=== PATIENT | male | born 1975 | race Caucasian/White ===

== ENCOUNTER 2017-01-25 21:35 | Emergency (ER) | payer MEDICAID, MEDICARE ==
[~2017-01-25] VITALS: Ht 188 cm; Wt 86.0 kg
[~2017-01-25 21:35] MED LIST: IMIP50TA6 PO; QUET100T PO
[2017-01-25 21:58] VITALS: BP 153/97
[2017-01-25] MEDS ORDERED: HYDROGEN PEROXIDE 118 ML SOLUTION ONE (22:32)
== END 2017-01-25 22:55 | disposition home or self-care (01) ==
LOC: EMS 21:38
DX: H61.21 Impacted cerumen, right ear (principal); F17.210 Nicotine dependence, cigarettes, uncomplicated; Z88.8 Allergy status to other drugs, medicaments and biological substances
CPT/HCPCS: 99281

== ENCOUNTER 2017-02-03 17:15 | Emergency (ER) | payer MEDICARE ==
[~2017-02-03] VITALS: Ht 188 cm; Wt 86.4 kg
[2017-02-03] MEDS ORDERED: HYDROGEN PEROXIDE 118 ML SOLUTION TP ONE (18:30)
[2017-02-03] MEDS ORDERED: CARBAMIDE PEROXIDE 6.5% 15 ML OTIC SOLUTION AU ONE (18:30)
[2017-02-03 19:44] VITALS: BP 137/83
== END 2017-02-03 19:57 | disposition home or self-care (01) ==
LOC: EMS 17:18
DX: H61.23 Impacted cerumen, bilateral (principal); F32.9 Major depressive disorder, single episode, unspecified; F41.9 Anxiety disorder, unspecified; Z88.8 Allergy status to other drugs, medicaments and biological substances
CPT/HCPCS: 69209; 99283

== ENCOUNTER 2018-04-18 01:09 | Emergency (ER) | payer SELFPAY ==
[~2018-04-18] VITALS: Ht 160 cm; Wt 100.0 kg
[2018-04-18 03:21] VITALS: BP 157/95
[2018-04-18] MEDS ORDERED: NEOMYCIN/BACITRACIN/POLYMYXIN B OINTMENT PACKET TP ONE ×2 (04:12→04:15)
[2018-04-18] MEDS ORDERED: LIDOCAINE/PF 1% 5 ML VIAL INJ ONE (04:45)
[2018-04-18 05:54] LABS: AMPHET/METH SCREEN,URINE NEGATIVE (NEGATIVE); BARBITURATE SCREEN, URINE NEGATIVE (NEGATIVE); BENZODIAZEPINES SCREEN,URINE NEGATIVE (NEGATIVE); CANNABINOID SCREEN,URINE POSITIVE (NEGATIVE); COCAINE SCREEN,URINE NEGATIVE (NEGATIVE); METHADONE SCREEN, URINE NEGATIVE (NEGATIVE); OPIATE SCREEN,URINE NEGATIVE (NEGATIVE)
[2018-04-18 06:05] LABS: PHENCYCLIDINE SCREEN,URINE NEGATIVE (NEGATIVE)
== END 2018-04-18 06:48 | disposition home or self-care (01) ==
LOC: EMS 01:09
DX: S01.511A Laceration without foreign body of lip, initial encounter (principal); F31.9 Bipolar disorder, unspecified; F41.9 Anxiety disorder, unspecified; F17.210 Nicotine dependence, cigarettes, uncomplicated; Z91.011 Allergy to milk products; W18.39XA Other fall on same level, initial encounter; Y93.89 Activity, other specified; Y92.89 Other specified places as the place of occurrence of the external cause; Y99.8 Other external cause status
CPT/HCPCS: 12011; 36415; 70450; 70486; 80307; 99285; G0480; J3490

== ENCOUNTER 2019-07-24 17:16 | Emergency (ER) | payer SELFPAY ==
[~2019-07-24] VITALS: Ht 182.9 cm; Wt 86.4 kg
[2019-07-24 18:39] LABS: INFLUENZA TYPE A NEGATIVE FOR TYPE A (NEGATIVE); INFLUENZA TYPE B NEGATIVE FOR TYPE B (NEGATIVE)
[2019-07-24] MEDS ORDERED: ACETAMINOPHEN 500 MG TABLET ONE (19:37)
[2019-07-24] MEDS ORDERED: ACETAMINOPHEN 500 MG TABLET PO ONE (19:45)
[2019-07-24 21:08] LABS: BASOPHILS % (AUTO) 0.3 % (0.0-2.0); EOSINOPHILS % (AUTO) 0.1 % (1.0-6.0); HEMATOCRIT 42.9 % (41-53); HEMOGLOBIN 14.9 g/dL (13.5-17.5); LYMPHOCYTES # (AUTO) 1.1 K/uL (1.0-4.8); LYMPHOCYTES % (AUTO) 6.5 % (22.0-44.0); MEAN CORPUSCULAR HEMOGLOBIN 31.8 pg (26.0-34.0); MEAN CORPUSCULAR HGB CONC 34.7 G/dL (31.0-37.0); MEAN CORPUSCULAR VOLUME 92 fL (80-100); MONOCYTES # (AUTO) 1.4 K/uL (0.1-1.0); MONOCYTES % (AUTO) 8.1 % (2.0-9.0); NEUTROPHILS # (AUTO) 14.6 K/uL (1.8-7.7); PLATELET COUNT (AUTO) 338 K/uL (150-450); RED BLOOD CELL COUNT(AUTO) 4.69 MIL/uL (4.50-5.90); RED CELL DISTRIBUTION WIDTH 13.4 % (11.5-14.5)
[2019-07-24 21:18] LABS: ANION GAP 12 mmol/L (8-16); CALCIUM, TOTAL 9.2 mg/dL (8.8-10.5); CARBON DIOXIDE 25 mmol/L (22-29); CHLORIDE 100 mmol/L (98-107); CREATININE 1.06 mg/dL (0.60-1.30); GLOMERULAR FILTR. RATE CALC > 60 mL/min (>60); GLUCOSE,RANDOM 118 mg/dL (70-110); POTASSIUM 3.7 mmol/L (3.5-5.1); SODIUM SERUM 137 mmol/L (136-145); UREA NITROGEN, BLOOD 12 mg/dL (7-18)
[2019-07-24 21:24] VITALS: BP 143/83
[2019-07-24 21:24] LABS: ALANINE AMINOTRANSFERASE 30 U/L (12-78); ALBUMIN 3.2 g/dL (3.4-5.0); ALKALINE PHOSPHATASE 112 U/L (46-116); ASPARTATE AMINOTRANSFERASE 15 U/L (15-37)
[2019-07-24] MEDS ORDERED: AZITHROMYCIN 250 MG TABLET PO ONE (22:00)
[2019-07-24] MEDS ORDERED: IBUPROFEN 800 MG TABLET PO ONE (22:00)
== END 2019-07-24 22:19 | disposition home or self-care (01) ==
LOC: EMS 17:18
DX: J20.9 Acute bronchitis, unspecified (principal); M79.10 Myalgia, unspecified site; F41.9 Anxiety disorder, unspecified; F31.9 Bipolar disorder, unspecified; F17.210 Nicotine dependence, cigarettes, uncomplicated; Z91.011 Allergy to milk products
CPT/HCPCS: 87804; 93005

== ENCOUNTER 2020-07-02 15:59 | Emergency (ER) | payer MEDICARE, MEDICAID ==
[2020-07-02 18:25] LABS: EOSINOPHILS % (AUTO) 2.1 % (1.0-6.0); HEMATOCRIT 42.5 % (41-53); HEMOGLOBIN 14.3 g/dL (13.5-17.5); LYMPHOCYTES # (AUTO) 1.2 K/uL (1.0-4.8); LYMPHOCYTES % (AUTO) 25.4 % (22.0-44.0); MEAN CORPUSCULAR HEMOGLOBIN 32.1 pg (26.0-34.0); MEAN CORPUSCULAR HGB CONC 33.7 G/dL (31.0-37.0); MEAN CORPUSCULAR VOLUME 95 fL (80-100); MONOCYTES # (AUTO) 0.5 K/uL (0.1-1.0); MONOCYTES % (AUTO) 10.4 % (2.0-9.0); NEUTROPHILS # (AUTO) 2.8 K/uL (1.8-7.7); NEUTROPHILS % (AUTO) 61.1 % (40.0-70.0); PLATELET COUNT (AUTO) 187 K/uL (150-450); RED BLOOD CELL COUNT(AUTO) 4.47 MIL/uL (4.50-5.90); RED CELL DISTRIBUTION WIDTH 14.2 % (11.5-14.5)
[2020-07-02 18:36] LABS: ANION GAP 10 mmol/L (8-16); CALCIUM, TOTAL 8.5 mg/dL (8.8-10.5); CARBON DIOXIDE 27 mmol/L (22-29); CHLORIDE 110 mmol/L (98-107); CREATININE 0.79 mg/dL (0.60-1.30); GLOMERULAR FILTR. RATE CALC > 60 mL/min (>60); GLUCOSE,RANDOM 109 mg/dL (70-110); SODIUM SERUM 147 mmol/L (136-145); UREA NITROGEN, BLOOD 13 mg/dL (7-18)
[2020-07-02 18:42] LABS: ALANINE AMINOTRANSFERASE 50 U/L (12-78); ALBUMIN 3.7 g/dL (3.4-5.0); ALKALINE PHOSPHATASE 86 U/L (46-116); ASPARTATE AMINOTRANSFERASE 29 U/L (15-37); BILIRUBIN,TOTAL 0.3 mg/dL (0.1-1.0); TOTAL PROTEIN, SERUM 7.1 g/dL (6.4-8.2)
[2020-07-02 19:22] VITALS: BP 127/71
== END 2020-07-02 19:25 | disposition home or self-care (01) ==
LOC: EMS 15:59
DX: F31.9 Bipolar disorder, unspecified (principal); F10.129 Alcohol abuse with intoxication, unspecified; F41.9 Anxiety disorder, unspecified; F17.210 Nicotine dependence, cigarettes, uncomplicated; Z91.011 Allergy to milk products; Z59.0 Homelessness; Y90.6 Blood alcohol level of 120-199 mg/100 ml
CPT/HCPCS: 80053; 85025; 99285; 99406; G0480

== ENCOUNTER 2025-02-08 18:37 | Emergency (ER) | payer MEDICARE, OTHER ==
[~2025-02-08] VITALS: Ht 185.4 cm; Wt 85.0 kg
[2025-02-08 18:53] VITALS: TEMP 98.6
[2025-02-08 19:13] LABS: PLATELET COUNT (AUTO) 244 K/uL (150-450); RED BLOOD CELL COUNT(AUTO) 5.26 MIL/uL (4.50-5.90); RED CELL DISTRIBUTION WIDTH 14.8 % (11.5-14.5); WHITE BLOOD COUNT (AUTO) 8.4 K/uL (4.5-11.0)
[2025-02-08 19:15] VITALS: BP 139/70; PULSE 88; RESP 16; O2SAT 100
[2025-02-08 19:22] LABS: CALCIUM, TOTAL 8.9 mg/dL (8.8-10.5); CREATININE 1.13 mg/dL (0.60-1.30); GLOMERULAR FILTR. RATE CALC > 60 mL/min (>60); GLUCOSE,RANDOM 115 mg/dL (70-110); SODIUM SERUM 136 mmol/L (136-145); UREA NITROGEN, BLOOD 22 mg/dL (7-18)
[2025-02-08 19:24] LABS: ALCOHOL, BLOOD (SERUM) < 3 mg/dL (0-10)
[2025-02-08 19:27] LABS: ASPARTATE AMINOTRANSFERASE 18 U/L (15-37); TOTAL PROTEIN, SERUM 7.9 g/dL (6.4-8.2)
[2025-02-08] MEDS ORDERED: OMEP-148 PO (20:23)
[2025-02-08] MEDS ORDERED: CARB-223 AD (20:23)
[2025-02-08] MEDS ORDERED: MAG30ORA11 PO (20:32)
== END 2025-02-08 20:47 | disposition home or self-care (01) ==
LOC: EMS 18:39
DX: F10.10 Alcohol abuse, uncomplicated (principal); K29.20 Alcoholic gastritis without bleeding; K70.30 Alcoholic cirrhosis of liver without ascites; H61.23 Impacted cerumen, bilateral; F31.9 Bipolar disorder, unspecified; F41.9 Anxiety disorder, unspecified; F17.210 Nicotine dependence, cigarettes, uncomplicated; R10.13 Epigastric pain; Z91.011 Allergy to milk products; Z59.00 Homelessness unspecified; Y90.9 Presence of alcohol in blood, level not specified
CPT/HCPCS: 99283; 80048; 80076; 85025; 36415; G0480